=== PATIENT | female | born 1995 | race Caucasian/White ===

== ENCOUNTER 2020-10-04 15:47 | Emergency (ER) | payer SELFPAY ==
[~2020-10-04] VITALS: Wt 63.5 kg
[2020-10-04] MEDS ORDERED: CLINDAMYCIN HC300 MG PO (18:39)
[2020-10-04] MEDS ORDERED: HYDROCODONE-AC1 EAC1 PO (18:39)
[2020-10-04] MEDS ORDERED: IBUPROFEN600 MG PO (18:39)
== END 2020-10-04 19:25 | disposition home or self-care (01) ==
LOC: ED 15:47
DX: L05.01 Pilonidal cyst with abscess (principal); Z88.0 Allergy status to penicillin; Z88.1 Allergy status to other antibiotic agents